=== PATIENT | male | born 1950 | race American Indian/Alaskan Native ===

== ENCOUNTER 2016-11-10 14:37 | Emergency (ER) | payer OTHER, MEDICARE ==
--- NOTE | 2016-11-10 15:19 | Emergency Department Report ---
Chief Complaint: Recheck/Abnormal Lab/Rx Stated Complaint: high blood sugar/excessive fluid on stomach Time Seen by Provider: 11/10/16 15:16 - HPI History of Present Illness: PT states his doctor told him to come to the ED for admission. PT states he was told that his bg is elevated and he has fluid on his stomach - ROS Review of Systems: + neuropathy + sob - Exam Vital Signs: Vital Signs 11/10/16 15:14 Temperature 98.8 F Pulse Rate 79 Respiratory 18 Rate Blood Pressure 119/50 O2 Sat by Pulse 94 Oximetry Physical Exam: PT looks well, non toxic + ascites MSE screening note: Focused history and physical exam performed. Due to findings the following was ordered: ekg, labs, xr ED Disposition for MSE Condition: Stable
[2016-11-10 16:06] LABS: Bilirubin,Urine NEG (Negative); Blood,Urine NEG (Negative); Ketones,Urine NEG (Negative); Leukocyte Esterase,Urine TR (Negative); Nitrite,Urine NEG (Negative); Protein,Urine <15 mg/dL mg/dL (Negative); Urobilinogen,Urine < 2.0 mg/dL (<2.0)
[2016-11-10 16:06] LABS: Basophils % (Auto) 0.4 % (0.0-1.8); Eosinophils % (Auto) 1.1 % (0.0-4.3); Hematocrit 38.9 % (35.5-45.6); Hemoglobin 13.2 gm/dl (11.8-15.2); Mean Corpuscular HGB Conc 34 % (32-34); Mean Corpuscular Hemoglobin 31 pg (28-32); Mean Corpuscular Volume 91 fl (84-94); Red Blood Count 4.27 M/mm3 (3.65-5.03); Red Cell Distribution Width 15.3 % (13.2-15.2); White Blood Count 6.7 K/mm3 (4.5-11.0)
--- NOTE | 2016-11-10 16:12 | XRay Report ---
CHEST 2 VIEWS INDICATION: Shortness of breath, high blood sugar. Abdominal swelling for 2 months. COMPARISON: 05/18/2016 FINDINGS: PA and lateral chest radiographs demonstrate stable cardiomediastinal silhouette, post CABG changes and left AICD with single ventricular lead. Clear lungs. Intact bones. CONCLUSION: No acute disease. Thank you for the opportunity to participate in this patient's care.
[2016-11-10 16:15] LABS: Albumin 3.9 g/dL (3.9-5); BUN/Creatinine Ratio 27.33; Bilirubin,Total 0.5 mg/dL (0.1-1.2); Calcium 9.1 mg/dL (8.4-10.2); Chloride 90.6 mmol/L (98-107); Potassium 5.6 mmol/L (3.6-5.0); Total Protein 7.7 g/dL (6.3-8.2)
[2016-11-10 16:21] LABS: INR 0.95 (0.87-1.13)
[2016-11-10 16:22] LABS: Partial Thromboplastin Time 25.9 Sec. (24.2-36.6)
[2016-11-10 16:30] LABS: Platelet Count 112 K/mm3 (140-440)
[2016-11-10] MEDS ORDERED: NACL 0.9% 1000 ML 1,000 ML IV ONE (18:00)
--- NOTE | 2016-11-10 18:06 | Emergency Department Report ---
ED General Adult HPI - General Chief complaint: Hyperglycemia Stated complaint: high blood sugar/excessive fluid on stomach Time Seen by Provider: 11/10/16 15:16 Source: patient Mode of arrival: Ambulatory Limitations: No Limitations - History of Present Illness Initial comments: 66-year-old male history of diabetes he went to his doctor today for a routine visit found he have a blood sugar was more than 500 he was sent here for further evaluation. Patient denied any fever or nausea or vomiting or diarrhea recently he stated that he has been having abdominal pain and distention for the last 2-3 days. No cough no urinary symptoms. -: Gradual Location: abdomen Consistency: constant - Related Data Home Medications Medication Instructions Recorded Confirmed Last Taken Cholecalciferol (Vitamin D3) 5,000 units PO QWEEK 05/15/14 05/15/15 05/15/15 06: 00 [Vitamin D3] Calcium Carbonate/Vitamin D3 1 tab PO DAILY 05/04/15 05/08/15 Unknown [Calcium 500 + D Tablet] Glucovance 5-500 mg 1 tab PO DAILY 05/04/15 05/08/15 Unknown Previous Rx's Medication Instructions Recorded Last Taken Type Furosemide [Lasix TAB] 40 mg PO QDAY #40 tablet 02/14/15 05/15/15 06:00 Rx Docusate Sodium [Colace CAP] 100 mg PO BID PRN #30 capsule 05/01/15 Unknown Rx HYDROcodone/APAP 5-325 [[place] 1 each PO Q6H PRN #60 tablet 05/01/15 05/15/15 06: 00 Rx 5-325 mg TAB] Ondansetron [Zofran Odt] 4 mg PO QID PRN #20 tab.rapdis 05/18/16 Unknown Rx Promethazine [Phenergan SUPPOS] 50 mg [place] Q6H PRN #15 supp.rect 05/18/16 Unknown Rx Aspirin [Aspirin BABY CHEW TAB] 81 mg PO QDAY #30 tab.chew 05/22/16 Unknown Rx AtorvaSTATin [Lipitor] 80 mg PO QHS #60 tablet 05/22/16 Unknown Rx Carvedilol [Coreg] 12.5 mg PO TID #90 tablet 05/22/16 Unknown Rx Cholecalciferol Vit D3 [Vitamin D3] 5,000 unit PO We@1000 tablet 05/22/16 Unknown Rx Clopidogrel [Plavix] 75 mg PO DAILY #30 tablet 05/22/16 Unknown Rx Finasteride [Proscar] 5 mg PO DAILY #30 tablet 05/22/16 Unknown Rx ISOSORBIDE MONOnitrate [Imdur ER] 60 mg PO QDAY #30 tablet 05/22/16 Unknown Rx Insulin NPH/Regular [NovoLIN 70/30] 20 unit SUB-Q BIDDIAB 30 Days 05/22/16 Unknown Rx Linagliptin [Tradjenta] 5 mg PO QDAY #30 tablet 05/22/16 Unknown Rx Losartan [Cozaar] 100 mg PO QDAY #60 tablet 05/22/16 Unknown Rx Tamsulosin [Flomax] 0.4 mg PO DAILY #30 capsule 05/22/16 Unknown Rx Simethicone [Bicarsim Forte] 125 mg PO Q6HR #30 tab 11/10/16 Unknown Rx Allergies Allergy/AdvReac Type Severity Reaction Status Date / Time No Known Allergies Allergy Verified 11/10/16 15:16 ED Review of Systems ROS: Stated complaint: high blood sugar/excessive fluid on stomach Other details as noted in HPI Comment: All other systems reviewed and negative Constitutional: denies: chills, fever Respiratory: denies: cough, shortness of breath, SOB with exertion, SOB at rest Cardiovascular: denies: chest pain, palpitations, dyspnea on exertion Gastrointestinal: abdominal pain. denies: nausea, vomiting, diarrhea, constipation, hematemesis, melena, hematochezia Skin: denies: rash Neurological: denies: headache, weakness, numbness, paresthesias ED Past Medical Hx - Past Medical History Hx Hypertension: Yes (Took Coreg this am) Hx Congestive Heart Failure: Yes (EF=30-35%.LEFT VENT FAILURE) Hx Diabetes: Yes Hx Liver Disease: Yes (HEPATITIS C) Hx Arthritis: Yes (GENERALIZED WEAKNESS) Hx Asthma: No Hx COPD: No Additional medical history: chronic pain. CAD - Surgical History Hx Open Heart Surgery: Yes (TRIPLE BYPASS,ICD,PTCA) Hx Pacemaker: Yes Hx Internal Defibrillator: Yes ([place]/ Ischemic Cardiomyopathy) - Social History Smoking Status: Never Smoker Substance Use Type: None - Medications Home Medications: Home Medications Medication Instructions Recorded Confirmed Last Taken Type Cholecalciferol (Vitamin D3) 5,000 units PO QWEEK 05/15/14 05/15/15 05/15/15 06: 00 History [Vitamin D3] Furosemide [Lasix TAB] 40 mg PO QDAY #40 tablet 02/14/15 05/15/15 05/15/15 06: 00 Rx Docusate Sodium [Colace CAP] 100 mg PO BID PRN #30 capsule 05/01/15 05/08/15 Unknown Rx HYDROcodone/APAP 5-325 [[place] 1 each PO Q6H PRN #60 tablet 05/01/15 05/15/15 06:00 Rx 5-325 mg TAB] Calcium Carbonate/Vitamin D3 1 tab PO DAILY 05/04/15 05/08/15 Unknown History [Calcium 500 + D Tablet] Glucovance 5-500 mg 1 tab PO DAILY 05/04/15 05/08/15 Unknown History Ondansetron [Zofran Odt] 4 mg PO QID PRN #20 tab.rapdis 05/18/16 Unknown Rx Promethazine [Phenergan SUPPOS] 50 mg [place] Q6H PRN #15 supp.rect 05/18/16 Unknown Rx Aspirin [Aspirin BABY CHEW TAB] 81 mg PO QDAY #30 tab.chew 05/22/16 Unknown Rx AtorvaSTATin [Lipitor] 80 mg PO QHS #60 tablet 05/22/16 Unknown Rx Carvedilol [Coreg] 12.5 mg PO TID #90 tablet 05/22/16 Unknown Rx Cholecalciferol Vit D3 [Vitamin D3] 5,000 unit PO We@1000 tablet 05/22/16 Unknown Rx Clopidogrel [Plavix] 75 mg PO DAILY #30 tablet 05/22/16 Unknown Rx Finasteride [Proscar] 5 mg PO DAILY #30 tablet 05/22/16 Unknown Rx ISOSORBIDE MONOnitrate [Imdur ER] 60 mg PO QDAY #30 tablet 05/22/16 Unknown Rx Insulin NPH/Regular [NovoLIN 70/30] 20 unit SUB-Q BIDDIAB 30 Days 05/22/16 Unknown Rx Linagliptin [Tradjenta] 5 mg PO QDAY #30 tablet 05/22/16 Unknown Rx Losartan [Cozaar] 100 mg PO QDAY #60 tablet 05/22/16 Unknown Rx Tamsulosin [Flomax] 0.4 mg PO DAILY #30 capsule 05/22/16 Unknown Rx Simethicone [Bicarsim Forte] 125 mg PO Q6HR #30 tab 11/10/16 Unknown Rx ED Physical Exam - General Limitations: No Limitations General appearance: alert, in no apparent distress - Head Head exam: Present: atraumatic, normocephalic - Eye Eye exam: Present: normal appearance, PERRL - ENT ENT exam: Present: normal exam, normal orophraynx, mucous membranes dry - Neck Neck exam: Present: normal inspection. Absent: tenderness, meningismus, full ROM, lymphadenopathy - Respiratory Respiratory exam: Present: normal lung sounds bilaterally. Absent: respiratory distress, wheezes, rales, rhonchi, stridor, decreased breath sounds, prolonged expiratory - Cardiovascular Cardiovascular Exam: Present: regular rate, normal rhythm, normal heart sounds - GI/Abdominal GI/Abdominal exam: Present: soft, distended, tenderness (diffuse). Absent: guarding, rebound, rigid, normal bowel sounds, diminished bowel sounds, mass, bruit, pulsatile mass, hernia - Extremities Exam Extremities exam: Present: normal inspection - Back Exam Back exam: Present: normal inspection. Absent: CVA tenderness (R), CVA tenderness (L) - Neurological Exam Neurological exam: Present: alert, oriented X3, CN II-XII intact - Skin Skin exam: Present: warm, dry, intact ED Course Vital Signs 11/10/16 11/10/16 11/10/16 15:14 17:14 17:15 Temperature 98.8 F Pulse Rate 79 Respiratory 18 Rate Blood Pressure 119/50 154/72 Blood Pressure [Left] O2 Sat by Pulse 94 97 99 Oximetry 11/10/16 11/10/16 11/10/16 17:30 17:32 17:45 Temperature 98.4 F Pulse Rate 69 70 69 Respiratory 17 22 18 Rate Blood Pressure 169/87 169/87 Blood Pressure 169/87 [Left] O2 Sat by Pulse 99 98 99 Oximetry 11/10/16 11/10/16 11/10/16 18:00 18:15 18:30 Temperature Pulse Rate 68 67 64 Respiratory 11 L 14 16 Rate Blood Pressure 169/74 169/74 172/76 Blood Pressure [Left] O2 Sat by Pulse 98 98 98 Oximetry 11/10/16 11/10/16 11/10/16 18:45 19:00 19:15 Temperature Pulse Rate 68 69 69 Respiratory 22 17 16 Rate Blood Pressure 172/76 173/78 173/78 Blood Pressure [Left] O2 Sat by Pulse 97 99 99 Oximetry - Reevaluation(s) Reevaluation #1: 11/10/16 22:13 Patient stated that he is feeling much better. His blood sugar now is 222. His blood work otherwise is normal. His CAT scan of the abdomen did not show anything acute. Advised patient to follow up with his primary care physician for further evaluation and management. ED Medical Decision Making - Lab Data Result diagrams: 11/10/16 15:39 11/10/16 15:39 Critical care attestation.: If time is entered above; I have spent that time in minutes in the direct care of this critically ill patient, excluding procedure time. ED Disposition Clinical Impression: Abdominal pain, Hyperglycemia Disposition: DC-01 TO HOME OR SELFCARE Is pt being admited?: No Condition: Stable Instructions: Diabetic Hyperglycemia (ED) Prescriptions: Simethicone [Bicarsim Forte] 125 mg PO Q6HR #30 tab
--- NOTE | 2016-11-10 21:28 | Cat Scan Report ---
FINAL REPORT PROCEDURE: CT ABDOMEN PELVIS W CON TECHNIQUE: Computerized axial tomography of the abdomen and pelvis was performed after the IV injection of iodinated nonionic contrast. HISTORY: abdominal pain COMPARISON: No prior studies are available for comparison. FINDINGS: Visualized lower thorax: No significant abnormality. Liver: Normal size and attenuation. Spleen: Normal size and attenuation. Gallbladder and biliary system: Normal. Pancreas: Normal. Adrenals: Normal. Kidneys: There are no kidney stones or ureteral stones. There is no hydronephrosis.. GI tract: There is no bowel obstruction. The stomach and small bowel are unremarkable. There are scattered diverticula of the sigmoid and left colon. There is no diverticulitis or colitis. The appendix is normal. Lymph nodes and mesentery: Normal. Vasculature: There is calcified plaque in the abdominal aorta. There is no aneurysm.. Bladder: Normal. Reproductive organs: Normal. Peritoneum: There is no ascites, free air, abscess or adenopathy.. Musculoskeletal structures: No significant abnormality. Other: None. IMPRESSION: There are no kidney stones or ureteral stones. There is no hydronephrosis.. There is no bowel obstruction. The stomach and small bowel are unremarkable. There are scattered diverticula of the sigmoid and left colon. There is no diverticulitis or colitis. The appendix is normal. There is no ascites, free air, abscess or adenopathy..
[2016-11-10 22:33] VITALS: BP 145/74
== END 2016-11-10 22:31 | disposition home or self-care (01) ==
LOC: ED 14:37
DX: E11.65 Type 2 diabetes mellitus with hyperglycemia (principal); R10.84 Generalized abdominal pain; I50.9 Heart failure, unspecified; R53.1 Weakness; I10 Essential (primary) hypertension
CPT/HCPCS: 36415; 71020; 74177; 80053; 81001; 82140; 82805; 82962; 83690; 83880; 84484; 85025; 85610; 85730; 93005; 93010; 96361; 96374; 99285; J7030; Q9967; J1815

== ENCOUNTER 2018-06-25 08:12 | Outpatient (CLI) | payer OTHER, MEDICARE | END 2018-06-25 08:13 | disposition home or self-care (01) | LOC: WOUND 08:12 | PROVIDERS: ATTEND Surgery | DX: E11.621 Type 2 diabetes mellitus with foot ulcer (principal); L97.512 Non-pressure chronic ulcer of other part of right foot with fat layer exposed; E11.51 Type 2 diabetes mellitus with diabetic peripheral angiopathy without gangrene; E11.21 Type 2 diabetes mellitus with diabetic nephropathy; I10 Essential (primary) hypertension; I25.10 Atherosclerotic heart disease of native coronary artery without angina pectoris; Z89.432 Acquired absence of left foot; Z95.810 Presence of automatic (implantable) cardiac defibrillator; Z95.1 Presence of aortocoronary bypass graft | CPT/HCPCS: 11042; G0463; 99205; 99215 ==

== ENCOUNTER 2018-07-09 07:48 | Outpatient (CLI) | payer OTHER, MEDICARE ==
[2018-07-09] MEDS ORDERED: XYLOCAINE TOPICAL 4% TP ONE (08:30)
== END 2018-07-09 07:49 | disposition home or self-care (01) ==
LOC: WOUND 07:48
PROVIDERS: ATTEND Surgery
DX: E11.621 Type 2 diabetes mellitus with foot ulcer (principal); L97.512 Non-pressure chronic ulcer of other part of right foot with fat layer exposed; L84 Corns and callosities; E11.51 Type 2 diabetes mellitus with diabetic peripheral angiopathy without gangrene; E11.21 Type 2 diabetes mellitus with diabetic nephropathy; I10 Essential (primary) hypertension; I25.10 Atherosclerotic heart disease of native coronary artery without angina pectoris

== ENCOUNTER 2018-07-16 07:51 | Outpatient (CLI) | payer OTHER, MEDICARE ==
[2018-07-16] MEDS ORDERED: XYLOCAINE TOPICAL 4% TP ONE (08:05)
== END 2018-07-16 07:52 | disposition home or self-care (01) ==
LOC: WOUND 07:51
PROVIDERS: ATTEND Surgery
DX: E11.621 Type 2 diabetes mellitus with foot ulcer (principal); L97.512 Non-pressure chronic ulcer of other part of right foot with fat layer exposed; E11.51 Type 2 diabetes mellitus with diabetic peripheral angiopathy without gangrene; E11.21 Type 2 diabetes mellitus with diabetic nephropathy; I10 Essential (primary) hypertension; I25.10 Atherosclerotic heart disease of native coronary artery without angina pectoris; Z89.432 Acquired absence of left foot